=== PATIENT | female | born 1995 | race Caucasian/White ===

== ENCOUNTER 2023-03-22 13:44 | Inpatient (IN) | payer BC ==
[2023-03-22] MEDS ORDERED: Sodium Chloride 0.9% 1,000 ML IV ONE (14:20)
[2023-03-22] MEDS ORDERED: Ketorolac 30 MG/ML SDV IVPUSH ONE (14:20)
[2023-03-22] MEDS ORDERED: Ondansetron 4 MG/2 ML SDV IVPUSH ONE (14:20)
[2023-03-22] MEDS ORDERED: Acetaminophen 500 MG Tab PO ONE (14:20)
[2023-03-22] MEDS ORDERED: Midazolam 1 MG/ML 2 ML SDV IVPUSH ONE (14:58)
[2023-03-22] MEDS ORDERED: Dexamethasone 10 MG/ML SDV IVPUSH ONE (15:14)
[2023-03-22] MEDS ORDERED: cefTRIAXone 2 GM in Sodium Chloride 0.9% 50 ML IV ONE (15:14)
[2023-03-22 15:16] LABS: BASOPHILS PERCENT AUTO 0.4 % (0.0-1.5); EOSINOPHILS ABSOLUTE AUTO 0.1 K/uL (0.0-0.7); EOSINOPHILS PERCENT AUTO 1.6 % (0.0-7.0); HEMATOCRIT 40.1 % (36.0-46.0); HEMOGLOBIN 13.5 g/dL (12.0-16.0); LYMPHOCYTES ABSOLUTE AUTO 1.5 K/uL (0.6-2.4); LYMPHOCYTES PERCENT AUTO 18.2 % (16.0-40.0); MEAN CORPUSCULAR HEMOGLOBIN 29.2 pg (27.0-32.0); MEAN CORPUSCULAR HGB CONC 33.7 g/dL (31.0-37.0); MEAN CORPUSCULAR VOLUME 86.6 fL (80.0-98.0); MONOCYTES ABSOLUTE AUTO 0.7 K/uL (0.0-0.8); MONOCYTES PERCENT AUTO 8.6 % (0.0-15.0); NEUTROPHILS ABSOLUTE AUTO 5.9 K/uL (1.4-5.7); NEUTROPHILS PERCENT AUTO 71.2 % (48.0-80.0); NRBC ABSOLUTE 0 K/uL; PLATELET COUNT,PLT 254 K/uL (150-400); RED BLOOD CELL COUNT 4.63 M/uL (4.30-5.90); WHITE BLOOD CELL COUNT,WBC 8.22 K/uL (4.0-11.0)
[2023-03-22 15:30] LABS: ALBUMIN 3.7 g/dL (3.4-5.0); BILIRUBIN TOTAL 0.6 mg/dL (0.2-1.0); CALCIUM 8.4 mg/dL (8.5-10.1); CARBON DIOXIDE,CO2 24.1 mmol/L (21.0-32.0); CREATININE 0.9 mg/dL (0.6-1.0); EST CRCL DRUG DOSING (CG) 94.72 mL/min; POTASSIUM,K 3.5 mmol/L (3.5-5.1); PROTEIN TOTAL,TP 7.3 g/dL (6.4-8.2)
[2023-03-22 15:33] LABS: LACTIC ACID 1.5 mmol/L (0.4-2.0)
[2023-03-22 16:22] LABS: APPEARANCE CSF CLEAR; COLOR,CSF COLORLESS
[2023-03-22 16:23] LABS: RBC,CSF 1 /uL (0-0); WBC,CSF 63 /uL (0-5)
[2023-03-22] MEDS ORDERED: fentaNYL 50 MCG/ML SDV IVPUSH ONE (16:38)
[2023-03-22] MEDS ORDERED: ACYCLOVIR IV STA (16:42)
[2023-03-22] MEDS ORDERED: SODIUM CHLORIDE 0.9% IV STA (16:42)
[2023-03-22] MEDS ORDERED: VANCOmycin 1.75 GM/350 ML 1.75 GM in Premix Bag 1 BAG IV ONE (17:00)
[2023-03-22] MEDS ORDERED: Naloxone 0.4 MG/ML SDV IVPUSH PRN (18:59)
[2023-03-22] MEDS ORDERED: Ondansetron 4 MG/2 ML SDV IVPUSH PRN (19:00)
[2023-03-22] MEDS ORDERED: Enoxaparin 40 MG/0.4 ML Syringe SUBCUT SCH (19:00)
[2023-03-22] MEDS: Morphine 2 MG/ML SYRINGE IVPUSH PRN (19:48)
[2023-03-22] MEDS: Sodium Chloride 0.9% 1,000 ML IV SCH (20:45)
[2023-03-22] MEDS: traMADol 50 MG Tab PO PRN (22:04)
[2023-03-22 22:30] LABS: BILIRUBIN,URINE NEGATIVE (NEGATIVE); COLOR,URINE YELLOW; GLUCOSE,URINE NEGATIVE (NEGATIVE); KETONES,URINE TRACE mg/dL (NEGATIVE); LEUKOCYTE ESTERASE,URINE TRACE (NEGATIVE); NITRITE,URINE NEGATIVE (NEGATIVE); OCCULT BLOOD,URINE NEGATIVE (NEGATIVE); PH,URINE 5.5 (5.0-8.0); PROTEIN,URINE NEGATIVE (NEGATIVE); UROBILINOGEN,URINE 0.2 EU/dL (<2.0)
[2023-03-22 22:33] LABS: APPEARANCE,URINE HAZY
[2023-03-22 22:38] LABS: BACTERIA,URINE FEW (NEGATIVE); EPITHELIAL CELLS,URINE FEW (NONE-FEW); RBC,URINE 0-2 (0-2/HPF); WBC,URINE 0-2 (0-5/HPF)
[2023-03-23] MEDS: Morphine 2 MG/ML SYRINGE IVPUSH PRN ×6 (00:08→22:12)
[2023-03-23] MEDS: Acetaminophen 325 MG Tab PO PRN ×2 (02:01→10:33)
[2023-03-23] MEDS: cefTRIAXone 2 GM in Sodium Chloride 0.9% 50 ML IV SCH ×2 (03:32→16:41)
[2023-03-23] MEDS: traMADol 50 MG Tab PO PRN ×3 (05:44→19:39)
[2023-03-23 06:23] LABS: BASOPHILS PERCENT AUTO 0.1 % (0.0-1.5); HEMATOCRIT 36.5 % (36.0-46.0); HEMOGLOBIN 12.3 g/dL (12.0-16.0); LYMPHOCYTES ABSOLUTE AUTO 1.1 K/uL (0.6-2.4); LYMPHOCYTES PERCENT AUTO 9.9 % (16.0-40.0); MEAN CORPUSCULAR HEMOGLOBIN 29.3 pg (27.0-32.0); MEAN CORPUSCULAR HGB CONC 33.7 g/dL (31.0-37.0); MEAN CORPUSCULAR VOLUME 86.9 fL (80.0-98.0); MONOCYTES ABSOLUTE AUTO 0.8 K/uL (0.0-0.8); NEUTROPHILS ABSOLUTE AUTO 9.1 K/uL (1.4-5.7); NRBC ABSOLUTE 0 K/uL; PLATELET COUNT,PLT 217 K/uL (150-400); WHITE BLOOD CELL COUNT,WBC 10.93 K/uL (4.0-11.0)
[2023-03-23] MEDS: Sodium Chloride 0.9% 1,000 ML IV SCH ×2 (06:43→19:39)
[2023-03-23 06:54] LABS: A/G RATIO 0.9 (0.9-1.6); ALBUMIN 2.9 g/dL (3.4-5.0); BILIRUBIN TOTAL 0.3 mg/dL (0.2-1.0); CALCIUM 7.3 mg/dL (8.5-10.1); CARBON DIOXIDE,CO2 22.2 mmol/L (21.0-32.0); CREATININE 0.6 mg/dL (0.6-1.0); EST CRCL DRUG DOSING (CG) 142.07 mL/min; POTASSIUM,K 3.8 mmol/L (3.5-5.1); PROTEIN TOTAL,TP 6.2 g/dL (6.4-8.2)
[2023-03-23] MEDS ORDERED: VANCOmycin 1.25 GM/250 ML 1.25 GM in Premix Bag 1 BAG IV SCH (09:00)
[2023-03-23] MEDS: Enoxaparin 40 MG/0.4 ML Syringe SUBCUT SCH (10:30)
[2023-03-23] MEDS: FLUoxetine 20 MG Cap PO SCH (10:38)
[2023-03-23] MEDS: VANCOmycin 1.75 GM/350 ML 1.75 GM in Premix Bag 1 BAG IV SCH ×2 (10:51→21:06)
[2023-03-23] MEDS ORDERED: Promethazine 25 MG/ML SDV IM PRN (11:52)
[2023-03-23] MEDS ORDERED: Iopamidol 755 MG/ML 500 ML Multipack Bottle IVPUSH STA (12:11)
[2023-03-23] MEDS: Scopolamine 1.5 MG Transdermal Patch TRDERM PRN (12:18)
[2023-03-23] MEDS: Ketorolac 30 MG/ML SDV IVPUSH PRN (18:10)
[2023-03-24] MEDS: Ketorolac 30 MG/ML SDV IVPUSH PRN ×3 (01:01→20:55)
[2023-03-24] MEDS: Morphine 2 MG/ML SYRINGE IVPUSH PRN ×5 (02:34→22:11)
[2023-03-24] MEDS: cefTRIAXone 2 GM in Sodium Chloride 0.9% 50 ML IV SCH ×2 (02:37→15:59)
[2023-03-24] MEDS: Acetaminophen 325 MG Tab PO PRN ×2 (05:16→19:00)
[2023-03-24 06:14] LABS: BASOPHILS PERCENT AUTO 0.2 % (0.0-1.5); EOSINOPHILS ABSOLUTE AUTO 0.1 K/uL (0.0-0.7); EOSINOPHILS PERCENT AUTO 1.3 % (0.0-7.0); HEMATOCRIT 35.5 % (36.0-46.0); LYMPHOCYTES ABSOLUTE AUTO 2.3 K/uL (0.6-2.4); LYMPHOCYTES PERCENT AUTO 26.5 % (16.0-40.0); MEAN CORPUSCULAR HEMOGLOBIN 29.6 pg (27.0-32.0); MEAN CORPUSCULAR HGB CONC 33.8 g/dL (31.0-37.0); MEAN CORPUSCULAR VOLUME 87.7 fL (80.0-98.0); MONOCYTES ABSOLUTE AUTO 0.6 K/uL (0.0-0.8); MONOCYTES PERCENT AUTO 6.8 % (0.0-15.0); NEUTROPHILS ABSOLUTE AUTO 5.6 K/uL (1.4-5.7); NEUTROPHILS PERCENT AUTO 65.2 % (48.0-80.0); NRBC ABSOLUTE 0 K/uL; PLATELET COUNT,PLT 180 K/uL (150-400); RED BLOOD CELL COUNT 4.05 M/uL (4.30-5.90); WHITE BLOOD CELL COUNT,WBC 8.62 K/uL (4.0-11.0)
[2023-03-24 06:48] LABS: BILIRUBIN TOTAL 0.2 mg/dL (0.2-1.0); CALCIUM 7.1 mg/dL (8.5-10.1); CARBON DIOXIDE,CO2 21.6 mmol/L (21.0-32.0); CREATININE 0.8 mg/dL (0.6-1.0); EST CRCL DRUG DOSING (CG) 106.56 mL/min; POTASSIUM,K 3.4 mmol/L (3.5-5.1)
[2023-03-24] MEDS ORDERED: Potassium Chloride 20 MEQ Tab.ER PO ONE (07:30)
[2023-03-24] MEDS ORDERED: Acetaminophen 500 MG Tab PO ONE (08:17)
[2023-03-24] MEDS: Enoxaparin 40 MG/0.4 ML Syringe SUBCUT SCH (08:38)
[2023-03-24] MEDS: FLUoxetine 20 MG Cap PO SCH (08:38)
[2023-03-24] MEDS: Sodium Chloride 0.9% 1,000 ML IV SCH ×2 (08:39→20:08)
[2023-03-24] MEDS ORDERED: diphenhydrAMINE 50 MG/ML SDV IVPUSH ONE ×2 (11:01→18:35)
[2023-03-24] MEDS: VANCOmycin 1.5 GM/300 ML 1.5 GM in Premix Bag 1 BAG IV SCH ×2 (12:17→22:04)
[2023-03-25] MEDS: Morphine 2 MG/ML SYRINGE IVPUSH PRN ×2 (02:44→08:34)
[2023-03-25] MEDS: cefTRIAXone 2 GM in Sodium Chloride 0.9% 50 ML IV SCH ×2 (02:47→16:07)
[2023-03-25] MEDS: Ketorolac 30 MG/ML SDV IVPUSH PRN (05:51)
[2023-03-25] MEDS: Sodium Chloride 0.9% 1,000 ML IV SCH ×2 (05:53→13:16)
[2023-03-25 06:49] LABS: BASOPHILS PERCENT AUTO 0.1 % (0.0-1.5); EOSINOPHILS ABSOLUTE AUTO 0.1 K/uL (0.0-0.7); EOSINOPHILS PERCENT AUTO 1.4 % (0.0-7.0); HEMATOCRIT 30.5 % (36.0-46.0); HEMOGLOBIN 10.6 g/dL (12.0-16.0); LYMPHOCYTES ABSOLUTE AUTO 1.4 K/uL (0.6-2.4); LYMPHOCYTES PERCENT AUTO 15.9 % (16.0-40.0); MEAN CORPUSCULAR HEMOGLOBIN 29.8 pg (27.0-32.0); MEAN CORPUSCULAR HGB CONC 34.8 g/dL (31.0-37.0); MEAN CORPUSCULAR VOLUME 85.7 fL (80.0-98.0); MONOCYTES ABSOLUTE AUTO 0.9 K/uL (0.0-0.8); MONOCYTES PERCENT AUTO 9.8 % (0.0-15.0); NEUTROPHILS ABSOLUTE AUTO 6.6 K/uL (1.4-5.7); NEUTROPHILS PERCENT AUTO 72.8 % (48.0-80.0); NRBC ABSOLUTE 0 K/uL; PLATELET COUNT,PLT 188 K/uL (150-400); RED BLOOD CELL COUNT 3.56 M/uL (4.30-5.90)
[2023-03-25 07:13] LABS: A/G RATIO 0.8 (0.9-1.6); ALBUMIN 2.5 g/dL (3.4-5.0); BILIRUBIN TOTAL 0.3 mg/dL (0.2-1.0); CALCIUM 7.1 mg/dL (8.5-10.1); CARBON DIOXIDE,CO2 23.7 mmol/L (21.0-32.0); CREATININE 0.8 mg/dL (0.6-1.0); EST CRCL DRUG DOSING (CG) 106.56 mL/min; POTASSIUM,K 2.9 mmol/L (3.5-5.1); PROTEIN TOTAL,TP 5.5 g/dL (6.4-8.2)
[2023-03-25] MEDS ORDERED: diphenhydrAMINE 50 MG/ML SDV IVPUSH PRN (07:31)
[2023-03-25] MEDS: FLUoxetine 20 MG Cap PO SCH (08:33)
[2023-03-25] MEDS: Enoxaparin 40 MG/0.4 ML Syringe SUBCUT SCH (08:39)
[2023-03-25] MEDS ORDERED: Potassium Chloride 20 MEQ Tab.ER PO ONE (09:06)
[2023-03-25] MEDS: Potassium Chloride 100 ML IV SCH ×2 (09:51→16:53)
[2023-03-25] MEDS ORDERED: Magnesium Sulfate/Water 2 GM in Premix Bag 1 BAG IV ONE ×2 (10:52→12:00)
[2023-03-25] MEDS: VANCOmycin 1.5 GM/300 ML 1.5 GM in Premix Bag 1 BAG IV SCH ×2 (11:23→22:05)
[2023-03-25] MEDS: Acetaminophen 325 MG Tab PO SCH ×3 (12:22→23:56)
[2023-03-25] MEDS: Polyethylene Glycol 3350 Powder 17 GM Packet PO SCH (12:24)
[2023-03-25] MEDS ORDERED: Potassium Chloride 20 MEQ in Premix Bag 1 BAG IV ONE (16:21)
[2023-03-25] MEDS: traMADol 50 MG Tab PO PRN (19:31)
[2023-03-25] MEDS: Melatonin 3 MG Tab PO PRN (22:53)
[2023-03-25] MEDS: oxyCODONE 5 MG Tab PO PRN (22:53)
[2023-03-26] MEDS: Sodium Chloride 0.9% 1,000 ML IV SCH ×2 (00:41→10:42)
[2023-03-26] MEDS: cefTRIAXone 2 GM in Sodium Chloride 0.9% 50 ML IV SCH ×2 (03:40→16:01)
[2023-03-26] MEDS: traMADol 50 MG Tab PO PRN ×2 (04:19→19:33)
[2023-03-26] MEDS: Acetaminophen 325 MG Tab PO SCH ×4 (06:01→23:50)
[2023-03-26 06:29] LABS: BASOPHILS PERCENT AUTO 0.2 % (0.0-1.5); EOSINOPHILS ABSOLUTE AUTO 0.3 K/uL (0.0-0.7); EOSINOPHILS PERCENT AUTO 2.5 % (0.0-7.0); HEMATOCRIT 31.7 % (36.0-46.0); HEMOGLOBIN 10.9 g/dL (12.0-16.0); LYMPHOCYTES ABSOLUTE AUTO 1.8 K/uL (0.6-2.4); LYMPHOCYTES PERCENT AUTO 17.8 % (16.0-40.0); MEAN CORPUSCULAR HEMOGLOBIN 29.4 pg (27.0-32.0); MEAN CORPUSCULAR HGB CONC 34.4 g/dL (31.0-37.0); MEAN CORPUSCULAR VOLUME 85.4 fL (80.0-98.0); MONOCYTES ABSOLUTE AUTO 0.9 K/uL (0.0-0.8); MONOCYTES PERCENT AUTO 9.5 % (0.0-15.0); NEUTROPHILS ABSOLUTE AUTO 6.9 K/uL (1.4-5.7); NRBC ABSOLUTE 0 K/uL; PLATELET COUNT,PLT 212 K/uL (150-400); RED BLOOD CELL COUNT 3.71 M/uL (4.30-5.90); WHITE BLOOD CELL COUNT,WBC 9.91 K/uL (4.0-11.0)
[2023-03-26 07:02] LABS: A/G RATIO 0.8 (0.9-1.6); ALBUMIN 2.7 g/dL (3.4-5.0); BILIRUBIN TOTAL 0.4 mg/dL (0.2-1.0); CALCIUM 7.5 mg/dL (8.5-10.1); CARBON DIOXIDE,CO2 19.7 mmol/L (21.0-32.0); CREATININE 0.6 mg/dL (0.6-1.0); EST CRCL DRUG DOSING (CG) 142.07 mL/min; MAGNESIUM 1.8 mg/dL (1.8-2.4); POTASSIUM,K 3.5 mmol/L (3.5-5.1)
[2023-03-26] MEDS: FLUoxetine 20 MG Cap PO SCH (08:54)
[2023-03-26] MEDS: Polyethylene Glycol 3350 Powder 17 GM Packet PO SCH (08:55)
[2023-03-26] MEDS: Enoxaparin 40 MG/0.4 ML Syringe SUBCUT SCH (08:55)
[2023-03-26] MEDS ORDERED: Acetaminophen 500 MG Tab PO ONE (09:29)
[2023-03-26] MEDS: oxyCODONE 5 MG Tab PO PRN (12:48)
[2023-03-26] MEDS ORDERED: Sodium Chloride 0.9% 0 ML ONE (16:15)
[2023-03-26] MEDS: Scopolamine 1.5 MG Transdermal Patch TRDERM PRN (21:08)
[2023-03-26] MEDS: Melatonin 3 MG Tab PO PRN (21:10)
[2023-03-27] MEDS: oxyCODONE 5 MG Tab PO PRN ×2 (02:11→14:39)
[2023-03-27] MEDS: cefTRIAXone 2 GM in Sodium Chloride 0.9% 50 ML IV SCH ×2 (03:21→14:35)
[2023-03-27] MEDS: Acetaminophen 325 MG Tab PO SCH ×3 (05:47→18:03)
[2023-03-27 06:00] LABS: BASOPHILS PERCENT AUTO 0.2 % (0.0-1.5); EOSINOPHILS ABSOLUTE AUTO 0.4 K/uL (0.0-0.7); EOSINOPHILS PERCENT AUTO 4.1 % (0.0-7.0); HEMATOCRIT 30.8 % (36.0-46.0); HEMOGLOBIN 10.8 g/dL (12.0-16.0); LYMPHOCYTES ABSOLUTE AUTO 1.7 K/uL (0.6-2.4); LYMPHOCYTES PERCENT AUTO 18.1 % (16.0-40.0); MEAN CORPUSCULAR HEMOGLOBIN 29.8 pg (27.0-32.0); MEAN CORPUSCULAR HGB CONC 35.1 g/dL (31.0-37.0); MEAN CORPUSCULAR VOLUME 84.8 fL (80.0-98.0); MONOCYTES ABSOLUTE AUTO 0.8 K/uL (0.0-0.8); MONOCYTES PERCENT AUTO 8.2 % (0.0-15.0); NEUTROPHILS ABSOLUTE AUTO 6.6 K/uL (1.4-5.7); NEUTROPHILS PERCENT AUTO 69.4 % (48.0-80.0); NRBC ABSOLUTE 0 K/uL; PLATELET COUNT,PLT 222 K/uL (150-400); RED BLOOD CELL COUNT 3.63 M/uL (4.30-5.90); WHITE BLOOD CELL COUNT,WBC 9.56 K/uL (4.0-11.0)
[2023-03-27 06:26] LABS: A/G RATIO 0.8 (0.9-1.6); ALBUMIN 2.7 g/dL (3.4-5.0); BILIRUBIN TOTAL 0.3 mg/dL (0.2-1.0); CARBON DIOXIDE,CO2 22.9 mmol/L (21.0-32.0); CREATININE 0.7 mg/dL (0.6-1.0); EST CRCL DRUG DOSING (CG) 121.78 mL/min; MAGNESIUM 1.8 mg/dL (1.8-2.4); POTASSIUM,K 3.5 mmol/L (3.5-5.1)
[2023-03-27] MEDS: traMADol 50 MG Tab PO PRN ×2 (09:00→21:17)
[2023-03-27] MEDS: FLUoxetine 20 MG Cap PO SCH (09:00)
[2023-03-27] MEDS: Enoxaparin 40 MG/0.4 ML Syringe SUBCUT SCH (09:01)
[2023-03-27] MEDS ORDERED: VANCOmycin 1.5 GM/300 ML 1.5 GM in Premix Bag 1 BAG IV SCH (13:00)
[2023-03-27] MEDS: Melatonin 3 MG Tab PO PRN (21:17)
[2023-03-28] MEDS: Acetaminophen 325 MG Tab PO SCH ×4 (00:13→17:27)
[2023-03-28] MEDS: oxyCODONE 5 MG Tab PO PRN ×2 (02:30→14:39)
[2023-03-28] MEDS: cefTRIAXone 2 GM in Sodium Chloride 0.9% 50 ML IV SCH ×2 (04:21→14:40)
[2023-03-28 05:55] LABS: BASOPHILS PERCENT AUTO 0.5 % (0.0-1.5); EOSINOPHILS ABSOLUTE AUTO 0.4 K/uL (0.0-0.7); EOSINOPHILS PERCENT AUTO 4.8 % (0.0-7.0); HEMATOCRIT 32.6 % (36.0-46.0); HEMOGLOBIN 11.3 g/dL (12.0-16.0); LYMPHOCYTES ABSOLUTE AUTO 1.6 K/uL (0.6-2.4); MEAN CORPUSCULAR HEMOGLOBIN 29.4 pg (27.0-32.0); MEAN CORPUSCULAR HGB CONC 34.7 g/dL (31.0-37.0); MEAN CORPUSCULAR VOLUME 84.9 fL (80.0-98.0); MONOCYTES ABSOLUTE AUTO 0.8 K/uL (0.0-0.8); MONOCYTES PERCENT AUTO 9.6 % (0.0-15.0); NEUTROPHILS ABSOLUTE AUTO 5.6 K/uL (1.4-5.7); NEUTROPHILS PERCENT AUTO 66.1 % (48.0-80.0); NRBC ABSOLUTE 0 K/uL; PLATELET COUNT,PLT 259 K/uL (150-400); RED BLOOD CELL COUNT 3.84 M/uL (4.30-5.90); WHITE BLOOD CELL COUNT,WBC 8.52 K/uL (4.0-11.0)
[2023-03-28 06:29] LABS: ALBUMIN 2.8 g/dL (3.4-5.0); BILIRUBIN TOTAL 0.3 mg/dL (0.2-1.0); CALCIUM 7.9 mg/dL (8.5-10.1); CARBON DIOXIDE,CO2 24.6 mmol/L (21.0-32.0); CREATININE 0.7 mg/dL (0.6-1.0); EST CRCL DRUG DOSING (CG) 121.78 mL/min; POTASSIUM,K 3.2 mmol/L (3.5-5.1); PROTEIN TOTAL,TP 6.1 g/dL (6.4-8.2)
[2023-03-28 06:34] LABS: A/G RATIO 0.9 (0.9-1.6)
[2023-03-28] MEDS ORDERED: Potassium Chloride 20 MEQ Tab.ER PO ONE (07:22)
[2023-03-28] MEDS: FLUoxetine 20 MG Cap PO SCH (08:13)
[2023-03-28] MEDS: traMADol 50 MG Tab PO PRN ×2 (08:14→22:11)
[2023-03-28] MEDS: Enoxaparin 40 MG/0.4 ML Syringe SUBCUT SCH (10:19)
[2023-03-28] MEDS ORDERED: hydrOXYzine HCl 25 MG Tab PO ONE (13:38)
[2023-03-28 19:02] LABS: HSV-1 DNA Negative (Negative); HSV-2 DNA Negative (Negative)
[2023-03-28] MEDS: Melatonin 3 MG Tab PO PRN (22:14)
[2023-03-29] MEDS: cefTRIAXone 2 GM in Sodium Chloride 0.9% 50 ML IV SCH ×2 (03:18→17:11)
[2023-03-29] MEDS: oxyCODONE 5 MG Tab PO PRN ×2 (03:25→18:11)
[2023-03-29] MEDS: Acetaminophen 325 MG Tab PO SCH ×5 (06:04→23:37)
[2023-03-29 06:38] LABS: BASOPHILS PERCENT AUTO 0.4 % (0.0-1.5); EOSINOPHILS ABSOLUTE AUTO 0.5 K/uL (0.0-0.7); EOSINOPHILS PERCENT AUTO 5.9 % (0.0-7.0); HEMATOCRIT 35.7 % (36.0-46.0); HEMOGLOBIN 12.3 g/dL (12.0-16.0); LYMPHOCYTES ABSOLUTE AUTO 1.6 K/uL (0.6-2.4); LYMPHOCYTES PERCENT AUTO 20.8 % (16.0-40.0); MEAN CORPUSCULAR HEMOGLOBIN 29.4 pg (27.0-32.0); MEAN CORPUSCULAR HGB CONC 34.5 g/dL (31.0-37.0); MEAN CORPUSCULAR VOLUME 85.2 fL (80.0-98.0); MONOCYTES ABSOLUTE AUTO 0.8 K/uL (0.0-0.8); MONOCYTES PERCENT AUTO 10.2 % (0.0-15.0); NEUTROPHILS ABSOLUTE AUTO 4.8 K/uL (1.4-5.7); NEUTROPHILS PERCENT AUTO 62.7 % (48.0-80.0); NRBC ABSOLUTE 0 K/uL; PLATELET COUNT,PLT 328 K/uL (150-400); RED BLOOD CELL COUNT 4.19 M/uL (4.30-5.90); WHITE BLOOD CELL COUNT,WBC 7.68 K/uL (4.0-11.0)
[2023-03-29 06:52] LABS: A/G RATIO 0.8 (0.9-1.6); BILIRUBIN TOTAL 0.3 mg/dL (0.2-1.0); CARBON DIOXIDE,CO2 23.8 mmol/L (21.0-32.0); CREATININE 0.7 mg/dL (0.6-1.0); EST CRCL DRUG DOSING (CG) 121.78 mL/min; POTASSIUM,K 3.6 mmol/L (3.5-5.1); PROTEIN TOTAL,TP 6.7 g/dL (6.4-8.2)
[2023-03-29] MEDS: Enoxaparin 40 MG/0.4 ML Syringe SUBCUT SCH (09:14)
[2023-03-29] MEDS: traMADol 50 MG Tab PO PRN ×3 (09:14→23:37)
[2023-03-29] MEDS: FLUoxetine 20 MG Cap PO SCH (09:14)
[2023-03-30] MEDS: Acetaminophen 325 MG Tab PO SCH ×3 (06:13→17:22)
[2023-03-30] MEDS: cefTRIAXone 2 GM in Sodium Chloride 0.9% 50 ML IV SCH ×2 (06:13→17:13)
[2023-03-30] MEDS: oxyCODONE 5 MG Tab PO PRN (06:13)
[2023-03-30] MEDS: FLUoxetine 20 MG Cap PO SCH (08:43)
[2023-03-30] MEDS: Enoxaparin 40 MG/0.4 ML Syringe SUBCUT SCH (08:43)
[2023-03-30] MEDS: traMADol 50 MG Tab PO PRN (09:35)
[2023-03-30] MEDS: Scopolamine 1.5 MG Transdermal Patch TRDERM PRN (11:15)
[2023-03-30] MEDS ORDERED: oxyCODONE 5 MG Tab PO PRN (21:00)
== END 2023-03-30 20:45 | disposition home or self-care (01) | DRG 50 ==
LOC: MW.ED 13:44 → MW.MS 17:18
PROVIDERS: ADMIT Internal Medicine; ATTEND Internal Medicine
PROC: 009U3ZZ Drainage of Spinal Canal, Percutaneous Approach (ICD-10-PCS; principal; 2023-03-22)
DX: G03.9 Meningitis, unspecified (principal); F41.9 Anxiety disorder, unspecified; F32.A Depression, unspecified; R94.31 Abnormal electrocardiogram [ECG] [EKG]; Z20.822 Contact with and (suspected) exposure to COVID-19; D50.9 Iron deficiency anemia, unspecified; Z79.899 Other long term (current) drug therapy
CPT/HCPCS: 36415; 62270; 70450; 70450-26; 71275; 71275-26; 74177; 74177-26; 80053; 80202; 81001; 82945; 83605; 83690; 83735; 84157; 84484; 84703; 85025; 86788; 86789; 87040; 87070; 87077; 87086; 87154; 87186; 87205; 87389; 87529; 87651-QW; 89050; 93005; 93010; 93306; 96361; 96365; 96375; 99285; 99285-25; A9270-GY; J0133; J0696; J1100; J1200; J1650; J1885; J2250; J2270; J2405; J3010; J3370; J3475; J3480; J3490; J7030; J7050; Q9967; U0002

== ENCOUNTER 2023-04-01 17:13 | Emergency (ER) | payer BC ==
[2023-04-01] MEDS ORDERED: Sodium Chloride 0.9% 2.5 ML Syringe FLUSH PRN (17:28)
[2023-04-01] MEDS ORDERED: Sodium Chloride 0.9% 10 ML Syringe FLUSH PRN (17:28)
[2023-04-01] MEDS ORDERED: Sodium Chloride 0.9% 1,000 ML IV ONE (17:28)
[2023-04-01] MEDS ORDERED: Iopamidol 755 MG/ML 500 ML Multipack Bottle IVPUSH STA (18:07)
[2023-04-01 18:28] LABS: BASOPHILS PERCENT AUTO 0.2 % (0.0-1.5); EOSINOPHILS ABSOLUTE AUTO 0.3 K/uL (0.0-0.7); EOSINOPHILS PERCENT AUTO 3.6 % (0.0-7.0); HEMATOCRIT 38.9 % (36.0-46.0); HEMOGLOBIN 13.4 g/dL (12.0-16.0); LYMPHOCYTES PERCENT AUTO 22.9 % (16.0-40.0); MEAN CORPUSCULAR HGB CONC 34.4 g/dL (31.0-37.0); MEAN CORPUSCULAR VOLUME 87.2 fL (80.0-98.0); MONOCYTES ABSOLUTE AUTO 0.9 K/uL (0.0-0.8); MONOCYTES PERCENT AUTO 9.6 % (0.0-15.0); NEUTROPHILS ABSOLUTE AUTO 5.7 K/uL (1.4-5.7); NEUTROPHILS PERCENT AUTO 63.7 % (48.0-80.0); PLATELET COUNT,PLT 340 K/uL (150-400); RED BLOOD CELL COUNT 4.46 M/uL (4.30-5.90)
[2023-04-01 18:43] LABS: INR 1.16 (0.86-1.11); PTT,PARTIAL THROMBOPLSTIN TIME 30.4 SEC (23.9-30.7)
[2023-04-01 19:04] LABS: A/G RATIO 0.9 (0.9-1.6); ALANINE AMINOTRANSFERASE,ALT 26 IU/L (14-63); ALBUMIN 3.6 g/dL (3.4-5.0); ALKALINE PHOSPHATASE 51 U/L (46-116); ASPARTATE AMNIOTRANSFERASE,AST 11 IU/L (15-37); BILIRUBIN TOTAL 0.2 mg/dL (0.2-1.0); BLOOD UREA NITROGEN,BUN 9 mg/dL (7.0-18.0); CALCIUM 8.8 mg/dL (8.5-10.1); CARBON DIOXIDE,CO2 22.4 mmol/L (21.0-32.0); CHLORIDE,CL 101 mmol/L (98-107); EST CRCL DRUG DOSING (CG) 85.24 mL/min; GLUCOSE RANDOM 108 mg/dL (74-106); POTASSIUM,K 3.5 mmol/L (3.5-5.1); PROTEIN TOTAL,TP 7.4 g/dL (6.4-8.2); SODIUM,NA 136 mmol/L (136-145)
[2023-04-01 19:05] LABS: ESTIMATED GFR 79 mL/min (>60)
== END 2023-04-01 20:16 | disposition left against medical advice (07) ==
LOC: MW.ED 17:13
DX: H57.02 Anisocoria (principal)
CPT/HCPCS: 36415; 70450; 70496; 70498; 80053; 82947; 84484; 85025; 85610; 85730; 93005; 99291; J3490; J7030; Q9967; 93010

== ENCOUNTER 2023-04-28 09:10 | Emergency (ER) | payer BC ==
[2023-04-28] MEDS ORDERED: Sodium Chloride 0.9% 10 ML Syringe FLUSH PRN (09:37)
[2023-04-28] MEDS ORDERED: Metoclopramide 10 MG/2 ML SDV IVPUSH ONE (09:37)
[2023-04-28] MEDS ORDERED: diphenhydrAMINE 50 MG/ML SDV IVPUSH ONE (09:37)
[2023-04-28] MEDS ORDERED: Sodium Chloride 0.9% 2.5 ML Syringe FLUSH PRN (09:37)
[2023-04-28] MEDS ORDERED: Sodium Chloride 0.9% 1,000 ML IV ONE (09:37)
[2023-04-28 09:58] LABS: BASOPHILS ABSOLUTE AUTO 0.04 K/uL (0.00-0.20); BASOPHILS PERCENT AUTO 0.4 % (0.0-1.0); EOSINOPHILS PERCENT AUTO 3.3 % (0.0-6.0); HEMATOCRIT 39.8 % (37.0-47.0); HEMOGLOBIN 13.8 g/dL (12.0-16.0); LYMPHOCYTES PERCENT AUTO 21.7 % (24.0-44.0); MEAN CORPUSCULAR HEMOGLOBIN 30.1 pg (28.0-32.0); MEAN CORPUSCULAR HGB CONC 34.7 g/dL (32.0-36.0); MEAN CORPUSCULAR VOLUME 86.9 fL (83.0-99.0); MEAN PLATELET VOLUME 9.3 fL (9.4-12.3); MONOCYTES ABSOLUTE AUTO 0.72 K/uL (0.00-0.80); MONOCYTES PERCENT AUTO 7.8 % (0.0-8.0); NEUTROPHILS ABSOLUTE AUTO 6.1 K/uL (1.8-7.7); NEUTROPHILS PERCENT AUTO 66.5 % (41.0-71.0); PLATELET COUNT,PLT 288 K/uL (150-400); RED BLOOD CELL COUNT 4.58 M/uL (4.10-5.30); WHITE BLOOD CELL COUNT,WBC 9.22 K/uL (3.9-11.3)
[2023-04-28 10:08] LABS: INR 1.07 (0.86-1.11)
[2023-04-28 10:18] LABS: A/G RATIO 1.1 (0.9-1.6); ALBUMIN 4.2 g/dL (3.4-5.0); BILIRUBIN TOTAL 0.5 mg/dL (0.2-1.0); CALCIUM 8.6 mg/dL (8.5-10.1); CARBON DIOXIDE,CO2 25.5 mmol/L (21.0-32.0); CREATININE 0.8 mg/dL (0.6-1.0); EST CRCL DRUG DOSING (CG) 106.56 mL/min; PROTEIN TOTAL,TP 8.1 g/dL (6.4-8.2)
[2023-04-28 10:39] LABS: CORONAVIRUS COVID-19 NAA NEGATIVE (NEGATIVE); INFLUENZA A NAA NEGATIVE (NEGATIVE); INFLUENZA B NAA NEGATIVE (NEGATIVE); RESPIRATORY SYNCYTIAL VIR NAA NEGATIVE (NEGATIVE)
[2023-04-28] MEDS ORDERED: Ketorolac 30 MG/ML SDV IVPUSH ONE (10:51)
== END 2023-04-28 11:12 | disposition home or self-care (01) ==
LOC: MW.ED 09:10
DX: R51.9 Headache, unspecified (principal); R50.9 Fever, unspecified; Z20.822 Contact with and (suspected) exposure to COVID-19
CPT/HCPCS: 0241U; 36415; 80053; 84703; 85025; 85610; 96374; 96375; 99284; J1200; J1885; J2765; J3490; J7030

== ENCOUNTER 2024-08-31 18:28 | Observation (INO) | payer MEDICAID ==
[2024-08-31] MEDS ORDERED: Lidocaine 1% 50 ML MDV INJECT PRN (18:41)
[2024-08-31] MEDS ORDERED: Tranexamic Acid in NACL,ISO-OS 1,000 MG in Premix Bag 1 BAG IV PRN (18:41)
[2024-08-31] MEDS ORDERED: Sodium Chloride 0.9% 10 ML Syringe FLUSH PRN (18:41)
[2024-08-31] MEDS ORDERED: Methylergonovine 0.2 MG/1 ML Amp IM PRN (18:41)
[2024-08-31] MEDS ORDERED: Sodium Chloride 0.9% 2.5 ML Syringe FLUSH PRN (18:41)
[2024-08-31] MEDS ORDERED: Ondansetron 4 MG/2 ML SDV IVPUSH PRN (18:41)
[2024-08-31] MEDS ORDERED: Misoprostol 200 MCG Tab PO PRN (18:41)
[2024-08-31] MEDS ORDERED: Water For Irrigation,Sterile 1,000 ML Container IRR PRN (18:41)
[2024-08-31] MEDS ORDERED: Carboprost Tromethamine 250 MCG/1 mL Vial IM PRN (18:41)
[2024-08-31] MEDS ORDERED: Sodium Chloride 0.9% 20 ML SDV IV PRN (18:41)
[2024-08-31] MEDS ORDERED: Oxytocin/0.9 % Sodium Chloride 30 UNIT/500 ML BAG IV SCH (18:45)
[2024-08-31] MEDS: Lactated Ringers 1,000 ML IV SCH (19:26)
[2024-08-31] MEDS: Ampicillin 2 GM in Sodium Chloride 0.9% 100 ML IV ONE (19:28)
[2024-08-31] MEDS: Betamethasone Acetate/Betamethasone Sod Phosphate 6 MG/1 ML MDV IM SCH (19:30)
[2024-08-31 19:59] LABS: HEMATOCRIT 30.8 % (37.0-47.0); HEMOGLOBIN 10.7 g/dL (12.0-16.0); MEAN CORPUSCULAR HEMOGLOBIN 28.5 pg (28.0-32.0); MEAN CORPUSCULAR HGB CONC 34.7 g/dL (32.0-36.0); MEAN CORPUSCULAR VOLUME 81.9 fL (83.0-99.0); MEAN PLATELET VOLUME 11.6 fL (9.4-12.3); PLATELET COUNT,PLT 216 K/uL (150-400); RED BLOOD CELL COUNT 3.76 M/uL (4.10-5.30); WHITE BLOOD CELL COUNT,WBC 11.11 K/uL (3.9-11.3)
[2024-08-31] MEDS: Nalbuphine 10 MG/1 ML Vial IVPUSH ONE (20:06)
[2024-08-31 20:51] LABS: CANDIDA DNA PROBE POSITIVE (NEGATIVE); GARDNERELLA DNA PROBE NEGATIVE (NEGATIVE); TRICHOMONAS DNA PROBE NEGATIVE (NEGATIVE)
[2024-08-31 21:01] LABS: COLOR,URINE YELLOW
[2024-08-31 21:02] LABS: APPEARANCE,URINE SLT CLOUDY; BILIRUBIN,URINE NEGATIVE (NEGATIVE); GLUCOSE,URINE NEGATIVE (NEGATIVE); KETONES,URINE NEGATIVE (NEGATIVE); LEUKOCYTE ESTERASE,URINE NEGATIVE (NEGATIVE); NITRITE,URINE NEGATIVE (NEGATIVE); OCCULT BLOOD,URINE SMALL (NEGATIVE); PROTEIN,URINE NEGATIVE (NEGATIVE); UROBILINOGEN,URINE 0.2 EU/dL (<2.0)
[2024-08-31] MEDS: NIFEdipine 10 MG Cap PO ONE (21:50)
[2024-08-31] MEDS: Butorphanol 2 MG/ML SDV IVPUSH PRN (22:06)
[2024-08-31 22:29] LABS: C. TRACHOMATIS BY PCR NOT DETECTED; N. GONORRHOEAE BY PCR NOT DETECTED
[2024-08-31] MEDS ORDERED: Sodium Chloride 0.9% 50 ML ONE (23:12)
[2024-08-31] MEDS: Ampicillin 1 GM in Sodium Chloride 0.9% 50 ML IV SCH (23:24)
[2024-08-31] MEDS: Ampicillin 1 GM Vial IV SCH (23:24)
[2024-08-31] MEDS ORDERED: Acetaminophen 500 MG Tab ONE (23:59)
[2024-09-01] MEDS: Acetaminophen 500 MG Tab PO PRN (00:06)
[2024-09-01 14:49] LABS: GROUP B STREP BY PCR POSITIVE (NEGATIVE)
== END 2024-09-01 01:43 ==
LOC: MW.OBCHECK 18:28 → MW.OB 18:28 → MW.OBCHECK 18:54
PROVIDERS: ADMIT Obstetrics & Gynecology; ATTEND Obstetrics & Gynecology
DX: O42.913 Preterm premature rupture of membranes, unspecified as to length of time between rupture and onset of labor, third trimester (principal); O60.03 Preterm labor without delivery, third trimester; O98.813 Other maternal infectious and parasitic diseases complicating pregnancy, third trimester; B37.9 Candidiasis, unspecified; Z3A.35 35 weeks gestation of pregnancy; Z79.899 Other long term (current) drug therapy
CPT/HCPCS: 36415; 59025; 76805; 81003; 84112; 85027; 86592; 86850; 86900; 86901; 87480; 87491; 87510; 87591; 87653; 87660; 99211; A9270; J0290; J0595; J0702; J2300; J3490; J7120; 99222